=== PATIENT | female | born 1985 | race Caucasian/White ===

== ENCOUNTER → 2017-09-07 | Outpatient (CLI) | payer OTHER ==
[~2017-09-07] MED LIST: PRILOS; PRILOSEC; Z.0.MULTIVITAMINS1 E
--- NOTE | 2017-09-07 15:18 | Diagnostic Imaging Report ---
PROCEDURE:X-RAY RIGHT KNEE, THREE OR MORE VIEWS COMPARISON:None. INDICATIONS:CHRONIC KNEE PAIN FINDINGS: The bones are well-mineralized. There are no fractures, subluxations, lytic or blastic lesions. Joint spaces are preserved. There is no evidence of a joint effusion. CONCLUSION: No acute abnormalities. MRI of the knee is recommended if there is continued pain and clinical concern for ligamentous or meniscal injury. Ibrahima Jiang M.D. Dictated by: Ibrahima Jiang M.D. on 09/07/2017 at 15:27 Electronically approved by: Ibrahima Jiang M.D. on 09/07/2017 at 15:27
--- NOTE | 2017-09-07 16:32 | Diagnostic Imaging Report ---
PROCEDURE:HIP RIGHT 2-3 VW (+/- PELVIS) COMPARISON:None. INDICATIONS:CHRONIC HIP PAIN FINDINGS: BONES: Normal mineralization. No acute fracture or dislocation. Joint spaces are within normal limits. No lytic or blastic lesion. SOFT TISSUES:Negative. OTHER:Partially visualized T-shaped IUD.. CONCLUSION: No acute abnormalities. Ibrahima Jiang M.D. Dictated by: Ibrahima Jiang M.D. on 09/07/2017 at 16:42 Electronically approved by: Ibrahima Jiang M.D. on 09/07/2017 at 16:42
== END ==
LOC: RAD 12:48
PROVIDERS: ATTEND Family Medicine
DX: M25.561 Pain in right knee (principal); M25.551 Pain in right hip